=== PATIENT | female | born 1940 | race Caucasian/White ===

== ENCOUNTER 2022-05-14 00:31 | Outpatient (CLI) | payer MEDICARE, BC, SELFPAY | END 2022-05-14 00:32 | disposition home or self-care (01) | LOC: AMB 05-16 18:31 | PROVIDERS: PCP Family Medicine; Visit Provider Family Medicine | DX: F41.9 Anxiety disorder, unspecified (principal) ==

== ENCOUNTER 2022-10-06 12:40 | Outpatient (CLI) | payer MEDICARE, BC, SELFPAY ==
--- NOTE | 2022-10-06 13:00 | CRLHL7_ITS ---
For Patients: As a result of the Century Cures Act, medical imaging exams and procedure reports are released immediately into your electronic medical record. You may view this report before your referring provider. If you have questions, please contact your health care provider. Indication: Lumbar stenosis. Technique: T2, T1, and STIR sagittal as well as T1 and T2 axial sequences were obtained. No IV contrast. Comparison: X-rays from 10/28/2020. Findings: Trace degenerative anterolisthesis at L3-4. Alignment is unchanged from 10/28/2020. No evidence for recent fracture, worrisome bone lesion or pars defect. Benign hemangioma in the posterior aspect of the L4 vertebral body. Degenerative fusion across the L4-5 disc space. Minimal Modic type 1 and 2 marrow signal changes along the vertebral endplates. Moderately severe central canal stenosis is present at L3-4, associated with tortuosity of the cauda equina nerve roots. Mild thecal sac effacement at L2-3. The conus medullaris is unremarkable, with the tip of the cord at the L1 level. No paraspinal pathology is identified. T12-L1: Moderate disc and mild facet degenerative changes with low-grade foraminal narrowing. L1-2: Advanced disc and moderate facet degenerative changes with low-grade foraminal narrowing. L2-3: Advanced disc and moderate facet degenerative changes. Mild effacement of the thecal sac mild foraminal narrowing. L3-4: Severe facet osteoarthritis with trace degenerative anterolisthesis. Advanced disc degeneration. A small right extraforaminal disc herniation abuts the right L3 root as it exits the foramen. Moderately severe central canal stenosis. Mild left and moderate right foraminal narrowing. L4-5: Severe facet osteoarthritis. Degenerative fusion across the disc space. Low-grade foraminal narrowing. L5-S1: Severe bilateral facet osteoarthritis. Moderate disc degeneration. Moderate left foraminal narrowing. Impression: 1. Severe facet hypertrophy, slight degenerative anterolisthesis and posterior disc prominence combined to cause high-grade central canal stenosis at L3-4. Associated tortuosity of the cauda equina nerve roots. 2. Also at L3-4 there is a small extraforaminal disc herniation on the right, with potential impingement on the right L3 root as it exits the foramen. 3. At L4-5 there is severe facet osteoarthritis and degenerative fusion across the disc space. 4. At L5-S1 there is severe facet osteoarthritis. 5. Scattered low-grade spondylosis elsewhere. Dictated by Chris Brito MD @ 10/08/2022 8:39:05 AM (Electronically Signed)
== END 2022-10-06 12:41 | disposition home or self-care (01) ==
PROVIDERS: PCP Family Medicine; Visit Provider Family Medicine
DX: M48.062 Spinal stenosis, lumbar region with neurogenic claudication (principal); M51.36 Other intervertebral disc degeneration, lumbar region; M51.35 Other intervertebral disc degeneration, thoracolumbar region; M47.896 Other spondylosis, lumbar region; M47.897 Other spondylosis, lumbosacral region
CPT/HCPCS: 72148

== ENCOUNTER 2023-07-07 11:30 | Outpatient (RCR) | payer MEDICARE, BC, SELFPAY | END 2023-09-05 13:20 | disposition home or self-care (01) | PROVIDERS: PCP Family Medicine; Visit Provider Family Medicine | DX: M48.00 Spinal stenosis, site unspecified (principal); G62.9 Polyneuropathy, unspecified; M62.81 Muscle weakness (generalized); M17.0 Bilateral primary osteoarthritis of knee; R26.89 Other abnormalities of gait and mobility; N81.10 Cystocele, unspecified; M54.50 Low back pain, unspecified; Z51.89 Encounter for other specified aftercare | CPT/HCPCS: 97112; 97163; 97530 ==

== ENCOUNTER 2024-08-16 00:20 | Outpatient (CLI) | payer MEDICARE, BC, SELFPAY | END 2024-08-16 00:21 | disposition home or self-care (01) | PROVIDERS: PCP Family Medicine; Visit Provider Family Medicine | DX: R10.9 Unspecified abdominal pain (principal) | CPT/HCPCS: A0425; A0427 ==

== ENCOUNTER 2024-08-16 01:01 | Emergency (ER) | payer MEDICARE, BC, SELFPAY ==
[2024-08-16] VITALS (8 sets, daily range): BP systolic 156–189; BP diastolic 78–124; PULSE 86–96; RESP 22; TEMP 36.2; O2SAT 99–100; BMI 44.8
--- OUTSIDE RECORDS SUMMARY | 2024-08-16 01:04 | XMS_ITS | Clinical Summary ---
Author Organization [facility] Address [address] [place] [id number] Care Team Providers Care Signal Fitter Name Role Phone Ruby Rivas Niki Unavailable [phone] Nathaly Reilly DO Primary Care Provider Allergies Active Allergy Reactions Criticality Noted Date Comments Amoxicillin GI Upset 11/01/2012 Hyoscyamine 05/13/2009 weakness Miconazole Rash 06/15/2006 Sertraline Diarrhea 02/12/2010 Medications Blood-Glucose Calibrat Control cmpkIndications :Controlled type 2 diabetes mellitus with diabetic polyneuropathy, with long-term current use of insulin (HC) Home test for Ultra one touch glucometer 1 Each 018 Active lancets (OneTouch Delica Plus Lancet) 33 gauge miscIndications :Controlled type 2 diabetes mellitus with diabetic polyneuropathy, with long-term current use of insulin (HC) Use to test 4-6 times per day 600 Each 3 022 Active insulin glargine, U-100, (Basaglar KwikPen U-100 Insulin) 100 unit/mL (3 mL) penIndications: Controlled type 2 diabetes mellitus with diabetic polyneuropathy, with long-term current use of insulin (HC) Product desired:BASAGLAR INJECT 48-50 UNITS SUBCUTANEOUSLY DAILY 60 mL 023 Active insulin lispro, U-100, (HUMALOG KWIKPEN; ADMELOG SOLOSTAR) 100 unit/mL inpn penIndications: Controlled type 2 diabetes mellitus with diabetic polyneuropathy, with long-term current use of insulin (HC) Inject 12-14 units subcutaneous three times daily before meals. Product desired: HUMALOG KWIKPEN 30 mL 3 023 Active medication order composerIndicat ions:Pedal edema Recliner chair . Raise legs above level of heart 3 times daily for 30 minutes. 1 Each 023 Active CPAPIndications :KAY (obstructive sleep apnea) CPAP machine for home use at pressure 5-15 cmw, nasal mask x1/3month with nasal pillows x 2/mo 1 Each 11 023 Active OneTouch Ultra Test stripIndication s:Controlled type 2 diabetes mellitus with diabetic polyneuropathy, with long-term current use of insulin (HC) TEST 4 TIMES DAILY is needed as she takes insulin 4 times daily. Is on sliding scale. 540 Each 3 024 Active WalkerIndicatio ns:DDD (degenerative disc disease), lumbar,Spinal stenosis of lumbar region without neurogenic claudication Walker with wheels,seat,hand brakes,and basket for home use. 1 Each 024 Active mometasone (ELOCON) 0.1 % creamIndication s:Chronic eczematous otitis externa of both ears Apply to ear's BID as needed. 15 g 2 024 Active loratadine (CLARITIN) 10 mg tabletIndicatio ns:Generalized pruritus Take 1 Tablet (10 mg) by mouth once daily. Alternates between loratidine and cetirizine depending on the day. Active ibuprofen (ADVIL; MOTRIN) 200 mg tabletIndicatio ns:Other chronic pain Reports using as needed for pain. 024 Active naltrexone LOW DOSE oral custom compoundIndicat ions:Other chronic pain Low-dose naltrexone 3 mg tablet: Take 0.5 tablet (1.5 mg) by mouth at bedtime and increase dose as instructed in your after visit summary. Dispense #90 tablets, 0 refills. 90 Each 024 Active pen needle (Shi Pen Needle) 32 gauge x 5/32 (disposable insulin pen needle)Indicati ons:Controlled type 2 diabetes mellitus with diabetic polyneuropathy, with long-term current use of insulin (HC) Remove the 2 covers on the pen needle before administering medication dose. 100 Each 11 024 Active medication order composerIndicat ions:Other chronic pain Nattokinase 2000FU: Daily Now B-100: Daily Ricky MORALES MCT Wellness (powder): Hasn't started PB8 probiotic 14 billion: holding Kelsey Cod Liver Oil 1000 Mg: Daily NOW magnesium citrate 260 mg: Daily HS (2 capsules) Now Vitamin D-3 2000 IU: 4000 IU daily Now C-500: Daily 2 capsule (1000 mg) NOW coq10 200 mg: daily NAC 500 mg twice a day Now Goldenseal root 500mg: PRN for cold Now Echinacea 400mg: PRN for cold 025 Active gabapentin 100 mg capsuleIndicati ons:Pruritus Take 1 capsule at bedtime for 2 weeks and if symptoms persist may increase by 1 capsule every 2 weeks up to 300mg (3 caps total). 90 Capsule 025 Active LORazepam 0.5 mg tabIndications: Anxiety TAKE 1/2 to 1 TABLET BY MOUTH ONCE DAILY NEEDED 20 Tablet 1 025 Active lisinopriL 2.5 mg tabletIndicatio ns:Essential hypertension Take 1 Tablet (2.5 mg) by mouth once daily. 90 Tablet 025 Active naltrexone LOW DOSE oral custom compoundIndicat ions:Other chronic pain Low Dose Naltrexone compounded to 4.5 mg tablets: Take 1 tablet by mouth daily at bedtime 90 Each 3 025 Active blood sugar diagnostic (Contour Next Test Strips) stripIndication s:Controlled type 2 diabetes mellitus with diabetic polyneuropathy, with long-term current use of insulin (HC) USE TO TEST THREE TIMES DAILY 300 Each 3 025 Active blood-glucose meterIndication s:Controlled type 2 diabetes mellitus with diabetic polyneuropathy, with long-term current use of insulin (HC) Dispense meter, test strips, lancets covered by pt ins. E11.9 IDDM type II - Test 4 times/day. Reason: Hypoglycemia 1 Each 025 Active blood sugar diagnostic (Blood Glucose Test) stripIndication s:Controlled type 2 diabetes mellitus with diabetic polyneuropathy, with long-term current use of insulin (HC) Test 3 times per day. 100 Each 12 024 2024 Discontinued Active Problems Problem Noted Date Diagnosed Date Depression, recurrent 09/21/2022 Assessment & Plan (08/09/2023 9:31 AM CDT): chart update only. Nathaly Reilly D.O. 08/09/2023 9:31 AM Assessment & Plan (09/21/2022 10:52 AM CDT): chart update only Nathaly Reilly D.O. 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 Essential hypertension 01/07/2016 Controlled type 2 diabetes m ilya with diabetic polyneuropathy, with long-term current use of insulin 11/07/2015 Aortic valve sclerosis 02/28/2015 Anxiety 02/13/2015 Small vessel disease, cerebrovascular 08/08/2013 Overview (08/08/2013): On MRI - 07/28/13 Alopecia 03/21/2013 Chronic idiopathic gout of multiple sites 2011 Unspecified venous (peripheral) insufficiency Insomnia, unspecified 12/20/2008 KAY PSG-1993, RDI-9 04/29/2008 Umbilical hernia without mention of obstruction or gangrene 06/30/2006 Overview (06/30/2006): two noted on CT Osteoarthrosis, unspecified whether generalized or localized, lower leg 06/30/2006 Unspecified hearing loss 06/30/2006 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 Diverticulosis of colon (without mention of hemo rrhage) 06/15/2006 Mixed hyperlipidemia 06/15/2006 Irritable bowel syndrome wit h both constipation and diarrhea Resolved Problems Problem Noted Date Diagnosed Date Resolved Date Claudication of both lower extremities 09/05/2018 09/05/2018 Insomnia, unspecified 01/07/20162016 Diabetes mellitus type 2, controlled 01/27/2015 01/07/2016 Cerebellar atrophy 08/08/2013 3 Overview (08/08/2013): On MRI - 07/28/13 Major depressive disorder, r ecurrent episode, unspecified 11/21/2009 10/08/2020 Obesity, unspecified 06/15/2006 017 Unspecified sleep apnea 06/15/200607/2021 Hypertension 06/15/2006 01/07/2016 Anxiety state, unspecified 06/15/2006 1 DIABETES MELLITUS TYPE II Overview (06/30/2006): dx'ed 1977 with foot neuropathy Encounters Date Type Department Care Team Description 08/13/2024 Telephone [facility] [address] [place] [address] Nathaly Reilly DO Questions (new meter to go with test strips) 08/07/2024 1:30 PM CDT Office Visit [facility] [address] [place] [address] Fili Benavides DPM Consult (Diabetic foot check) 08/07/2024 Travel 08/07/2024 Refill [facility] [address] [place] [address] Nathaly Reilly DO Refill Request (Contour Next Test Strips) 06/28/2024 11:00 AM CDT Office Visit [facility] [address] [place] [address] Jason Vazquez MD Follow Up (Unable to collect stool samples, bladder urgency issues, difficulty attending appointments (CT), diarrhea resolved-constipation now) 06/28/2024 Travel 06/21/2024 Orders Only [facility] Scanner 1 scan: (1-Ord) [facility], 06/21/2024 06/20/2024 Refill [facility] [address] [place] [address] Maryam Barber PA Refill Request (naltrexone LOW DOSE oral custom compound ) 05/23/2024 Refill [facility] [address] [place] [address] Nathaly Reilly DO Refill Request (Lisinopril) 05/21/2024 Telephone [facility] [address] [place] [address] Nathaly Reilly DO Form from Last 3 Months Immunizations Immunization Administration Dates Next Due Influenza Virus, Unspecified 01/01/2002 Influenza, IIV3 (Age 6-35 mos) 11/13/2010 Influenza, IIV3 (Age >=3 years) 11/11/19 13,12/20/2011,11/13/2010,2009,11/08/2008,12/14/2005,11/23/2004,1 ,12/13/2000,12/22/1998 Pneumococcal Poly,23-Valent (Pneumovax) 09/26/2008,05/23/2000 Pneumococcal conj 13-Valent (Prevnar 13) 05/22/2015 Td (Age >=7 Years) 12/14/2005 Tdap 05/22/2015 Family History Medical History Relation Name Comments Arthritis Brother Cancer Father d 42 yo unknown CA Arthritis Mother at 99 from old age Other Sister Down's Relation Name Status Comments Brother Father Mother Sister Social History Tobacco Use Types Packs/Day Years Used Date Smoking Tobacco: Never Smokeless Tobacco: Never Tobacco Cessation:Counseling Given: Yes Alcohol Use Standard Drinks/Week Comments No 0 (1 standard drink = 0.6 oz pur e alcohol) PHQ-2 Answer Date Recorded PHQ-2 TOTAL SCORE 1 10/28/2023 Social Connections Answer Date Recorded Do you often feel lonely or isolated from those around you? 0 06/10/2023 Financial Resource Strain Answer Date R ecorded Difficulty of Paying Living Expenses 3 06/10/2023 Difficulty of Paying Living Expenses Not on file 06/10/2023 Food Insecurity Answer Date Recorded Do you worry your food will run out before you are able to buy more? 1 06/10/2023 Transportation Needs Answer Date Record ed Does lack of transportation keep you from medica l appointments? 1 06/10/2023 Does lack of transportation keep you from work, meetings or getting things that you need? 1 06/10/2023 Housing Stability Answer Date Recorded What is your housing situation today? 1 06/10/2023 Utilities Answer Date Recorded Do you have trouble paying f or utilities (for example, heat, electricity, water, phone)? 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 Gender Identity Not on file Sexual Orientation Not on file Occupation Industry Job Start Date Job End Date retired Not on file Not on file Not on file Obstetrics History Para Term AB IAB SAB Ectopic Multiple Livin g Live Births 1 1 1 1 Date Outcome GA Total Labor Labor/2nd/3rd Weight Sex Type Anes PTL Jeanette A1 A5 Name Clin Term Last Filed Vital Signs Vital Sign Reading Time Taken Comments Blood Pressure 169/66 08/07/2024 2:04 PM CDT Pulse 78 08/07/2024 1:36 PM CDT Temperature 36.7 C (98.1 F) 07/24/2019 11:18 AM CDT Respiratory Rate 18 10/02/2013 1:05 PM CDT Oxygen Saturation 96% 06/28/2024 11:11 AM CDT Inhaled Oxygen Concentration - - Weight 110.2 kg (243 lb) 08/07/2024 1:36 PM CDT Height 157.5 cm (5' 2) 10/28/2023 10:02 AM CDT Body Mass Index 44.45 10/28/2023 10:02 AM CDT Plan of Treatment Upcoming Encounters Date Type Department Care Team (Late st Contact Info) Description 09/19/2024 10:30 AM CDT Office Visit [facility] [address] [place] [address] Maryam Barber PA [address] [place] [address] Health Maintenance Due Date Last Done Comments Zoster (shingles) series for age 50+ (1 of 2) 1988 RSV vaccine for adults or (1 - 1-dose 75+ series) 2013 Medicare Wellness for age 65+ 11/13/2022 11/12/2021, 10/08/2020, 09/05/2018 COVID-19 vaccine series ( season) 2023 Influenza Vaccine (#1) 2024 3, 12/20/2011, 11/13/2010, Additional history exists BMI (ht and wt on same day) for age 18+ 10/27/2024 10/28/2023, 12/13/2022, 10/08/2020, Additional history exists Depression screening for age 12+ 10/27/2024 10/28/2023, 11/12/2021, 11/12/2021, Additional history exists Tetanus booster 05/21/2025 05/22/2015, 12/14/2005 Pneumococcal series for age 50+ Completed 05/22/2015, 09/26/2008, 05/23/2000 DEXA/DXA scan for age 65+ Completed 04/27/2016 Hepatitis B series for 19+ Aged Out N o longer eligible based on patient's age to complete this topic Goals Goal Patient Goal Type Associated Problems Recent Progress Patient-Stated? Author BLOOD PRESSURE - MAINTAINS BP less than 140/90 Blood Pressure No Sam Rouse MD Procedures Procedure Name Priority Date/Time Associated Diagnosis Comments SCAN-EYE EXAM 06/21/2024 12:00 AM CDT XR DXA BONE DENSITY 2 SITES AXIAL Routine 04/27/2016 10:50 AM CDT Post-menopausal from Last 3 Months or Most Recently Relevant to Health Maintenance Results * SCAN-EYE EXAM (06/21/2024 12:00 AM CDT) us Scanner OTHER Final Result * (ABNORMAL) XR DXA BONE DENSITY 2 SITES AXIAL (04/27/2016 10:50 AM CDT) Anatomical Region Laterality Modality Spine, HIPS, HIPL, HIPR Other Narrative 05/04/2016 11:02 AM CDT Please see scanned document for results of this study. us Sam Rouse MD DEXA Final Re sult from Last 3 Months or Most Recently Relevant to Health Maintenance Insurance MEDICARE PART B HB ONLY [employer] [place] [employer] MR PB ONLY [employer] [place] [employer] HB ONLY Care Teams Signal Fitter Relationship Specialty Start Date End Date Nathaly Reilly DO [address] [place] [address] PCP - General Family Practice 01/12/22 Ruby Rivas AuD Audiology 08/06/11
--- OUTSIDE RECORDS SUMMARY | 2024-08-16 01:04 | XMS_ITS | Data Portability ---
Author Organization [place] - [facility], autoContract - [facility] Address [address] [place] [address] Assessment Encounter Date Assessment Date Assessment LastModified by Organization Details LastModified Time 04/13/2024 04/13/2024 ASSESSMENT: Patient is a good candidate for conservative care and the prognosis is for a favorable outcome that achieves the patients' goals. We discussed etiology, activity modifications, home care, and other treatment options. Initially, it is recommended that the patient receive in-office treatment 1 times per week for 8 weeks at which time a re-evaluation will be performed to determine an appropriate change in plan. Initially, treatment will focus on joint manipulation to restore range of motion and reduce pain. We will slowly progress to therapeutic exercises and activities to improve function, strength, and stability may also be used as warranted. If the patient is not responding as expected, more invasive procedures will be discussed along with a referral. All considerations above were discussed with the patient and questions answered to satisfaction. If the patient should have any additional questions, or should the condition evolve or worsen, the patient should not hesitate to contact our office. ASSESSMENT: Patient is a good candidate for conservative care and the prognosis is for a favorable outcome that achieves the patients' goals. We discussed etiology, activity modifications, home care, and other treatment options. Initially, it is recommended that the patient receive in-office treatment 1 times per week for 8 weeks at which time a re-evaluation will be performed to determine an appropriate change in plan. Initially, treatment will focus on joint manipulation to restore range of motion and reduce pain. We will slowly progress to therapeutic exercises and activities to improve function, strength, and stability may also be used as warranted. If the patient is not responding as expected, more invasive procedures will be discussed along with a referral. All considerations above were discussed with the patient and questions answered to satisfaction. If the patient should have any additional questions, or should the condition evolve or worsen, the patient should not hesitate to contact our office. ecram Not available 04/13/2024 14:04:45 04/30/2024 04/30/2024 ASSESSMENT: Patient is a good candidate for conservative care and the prognosis is for a favorable outcome that achieves the patients' goals. We discussed etiology, activity modifications, home care, and other treatment options. Initially, it is recommended that the patient receive in-office treatment 1 times per week for 8 weeks at which time a re-evaluation will be performed to determine an appropriate change in plan. Initially, treatment will focus on joint manipulation to restore range of motion and reduce pain. We will slowly progress to therapeutic exercises and activities to improve function, strength, and stability may also be used as warranted. If the patient is not responding as expected, more invasive procedures will be discussed along with a referral. All considerations above were discussed with the patient and questions answered to satisfaction. If the patient should have any additional questions, or should the condition evolve or worsen, the patient should not hesitate to contact our office. ASSESSMENT: Patient is a good candidate for conservative care and the prognosis is for a favorable outcome that achieves the patients' goals. We discussed etiology, activity modifications, home care, and other treatment options. Initially, it is recommended that the patient receive in-office treatment 1 times per week for 8 weeks at which time a re-evaluation will be performed to determine an appropriate change in plan. Initially, treatment will focus on joint manipulation to restore range of motion and reduce pain. We will slowly progress to therapeutic exercises and activities to improve function, strength, and stability may also be used as warranted. If the patient is not responding as expected, more invasive procedures will be discussed along with a referral. All considerations above were discussed with the patient and questions answered to satisfaction. If the patient should have any additional questions, or should the condition evolve or worsen, the patient should not hesitate to contact our office. ecram Not available 04/30/2024 12:22:28 Plan of Treatment Reminders Order Date Submit Date Provider Last Modified By Organization Details Last Modified Time Details Appointments None record ed. Lab None record ed. Referral None record ed. Procedures None record ed. Surgeries None record ed. Imaging None record ed. Medication Orders None record ed. Patient TargetsNo targets recorded. Patient InstructionsNo instructions recorded. Reason for Referral None Reported. 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, [address], [facility] 14:04:37 Somatic dysfunction of sacral spine 857459653 Active 2024 Daniel Dennis DC [address], [place], [address], [facility] 14:04:37 Low back pain 883864545 Active 2024 Daniel Dennis DC [address], [place], [address], [facility] 14:04:37 Neck pain 71912100 Active 2024 Daniel Dennis DC [address], [place], [address], [facility] 14:04:45 Cervical segmental dysfunction 902792294 Active 2024 Daniel Dennis DC [address], [place], [address], [facility] 14:04:45 Problem Notes None recorded. Procedures Surgical History Date Name Laterality Status Provider Name and Address Organization Details Recorded Time 5 58273: Spinal manipulation , 3 to 4 regions completed Daniel Dennis DC [address], [place], [address], [facility] 04/30/2024 12:22:28 [address]: Spinal manipulation , 3 to 4 regions completed Daniel Dennis DC [address], [place], [address], [facility] 04/13/2024 14:06:28 Imaging Results None recorded. Procedure Notes None recorded. Medical Equipment None Reported. Medications Name Sig Start Date Stop Date Status Note LastModified by Organization Details LastModified Time cetirizine 10 mg tablet TAKE 1 TABLET (10 MG) BY MOUTH ONCE DAILY. active Not Available Not Available No t Available nystatin 100,000 unit/gram topical ointment APPLY TOPICALLY TO AFFECTED AREA(S) TWO TIMES DAILY. active Not Available Not Available No t Available prednisolone acetate 1 % eye drops,suspen josr INSTILL 1 DROP IN BOTH EYES FOUR TIMES A DAY X 1 WEEK THEN DIRECTED active Not Available Not Available Not Available lorazepam 0.5 mg tablet TAKE 1/2 TO 1 TABLET BY MOUTH ONCE DAILY NEEDED active Not Available Not Available No t Available Lastline Ultra Test strips USE TO TEST THREE TIMES DAILY active Not Available Not Available No t Available erythromycin 5 mg/gram (0.5 %) eye ointment APPLY OINTMENT SPARINGLY TO LASH LINE AND INNER LIDS AT BEDTIME IN BOTH EYES X 1 WEEK active Not Available Not Available No t Available triamcinolon e acetonide 0.1 % topical ointment APPLY TOPICALLY TWICE A DAY. USE FOR UP TO 2 WEEKS. active Not Available Not Available No t Available nystatin 100,000 unit/gram topical cream APPLY TOPICALLY TO AFFECTED AREA THREE TIMES DAILY FOR 1-2 WEEKS AND CONTINUE FOR 2 DAYS AFTER RASH RESOLVES active Not Available Not Available No t Available polymyxin B sulfate 10,000 unit-trimeth oprim 1 mg/mL eye drops INSTILL 1 DROP IN BOTH EYES FOUR TIMES A DAY X 1 WEEK THEN D/C active Not Available Not Available No t Available omeprazole 20 mg capsule,radha yed release TAKE 1 CAPSULE (20 MG) BY MOUTH ONCE DAILY BEFORE A MEAL. active Not Available Not Available No t Available gabapentin 100 mg capsule TAKE 1 CAPSULE AT BEDTIME FOR 2 WEEKS AND IF SYMPTOMS PERSIST MAY INCREASE BY 1 CAPSULE EVERY 2 WEEKS UP TO 300MG (3 CAPS TOTAL). active Not Available Not Available No t Available clotrimazole 1 % topical cream APPLY TOPICALLY TO AFFECTED AREA(S) TWO TIMES DAILY. active Not Available Not Available No t Available lisinopril 2.5 mg tablet TAKE 1 TABLET (2.5 MG) BY MOUTH ONCE DAILY. active Not Available Not Available No t Available mometasone 0.1 % topical cream APPLY TO AFFECTED AREA OF EAR TOPICALLY TWICE A DAY NEEDED active Not Available Not Available No t Available Unilet GP Lancet USE DIRECTED active Not Available Not Available No t Available BD Ultra-Fine Shi Pen Needle 32 gauge x REMOVE THE 2 COVERS ON THE PEN NEEDLE BEFORE ADMINISTERI NG MEDICATION DOSE. active Not Available Not Available No t Available Vitals None Recorded Social History None recorded. Functional Status None recorded. Mental Status None recorded. Family History Nothing Reported. Medical History No medical history recorded. Gynecological HistoryNo gynecological history recorded. Obstetrics History GPAL:G 0 P 0 0 0 0 Past Encounters Encounter ID Performer Location Encounter Start Date Encounter Closed Date Diagnosis/Indication Diagnosis SNOMED-CT Code Diagnosis ICD10 Code Diagnosis Note [id number] Daniel Dennis DC [address] [place] [address] 04/13/2024 12:21:57 04/13/2024 15:10:54 Lumbar segmental dysfunction 493197991 M99.03 Low back pain 713998656 M54.50 Somatic dy sfunction of sacral spine 942450366 M99.04 Thoracic s egmental dysfunction 646855090 M99.02 Cervical s egmental dysfunction 569456313 M99.01 Neck pain 34118569 M54.2 [id number] Daniel Dennis DC [address] [place] [address] 04/30/2024 12:10:45 04/30/2024 12:50:46 Lumbar segmental dysfunction 260666084 M99.03 Low back pain 442222203 M54.50 Somatic dy sfunction of sacral spine 836371896 M99.04 Thoracic s egmental dysfunction 554112304 M99.02 Cervical s egmental dysfunction 035302184 M99.01 Neck pain 14478170 M54.2 Health Concerns Section Related Observation LastModified by Organization Detai ls LastModified Time None Recorded Concern Status LastModified by Organization Details LastModified Time None Recorded Advance Directives Directive None Recorded Payers Insurance Date Sequence Insurance Name Policy Number Policy Lomas Covered Member ID Lomas Member ID Guarantor Name 04/30/2024 1 *SELF PAY* Da va Meri 05/11/2024 1 [place]ICARE [place]: [employer] Zachery Jerez [id number] 1 Zachery Jerez 05/11/2024 2 [facility] [id number] Zachery Jerez [id number] Zachery Jerez Notes Date Note Type Note Provider Name and Address Organization Details Recorded Time 04/13/2024 text/html HPI - Cervical SpineReported bypatient.Location: left Quality:aching Severity:moderate Duration:2 weeks Timing:gradual Alleviating Factors:ice Aggravating Factors:sitting Associated Symptoms:no numbness/tinglingHP I - Lumbar SpineReported bypatient.Location: left; With radiation to knee Quality:aching Severity:moderate Timing:cannot identify Duration:chronic Context:cannot identify Aggravating Factors:lifting; twisting; bending/squatting Alleviating Factors:ice; rest Daniel Dennis DC [address], [place], [address], [facility] 04/13/2024 14:06:47 04/30/2024 text/html HPI - Cervical SpineReported bypatient.Location: left Quality:aching Severity:moderate Duration:2 weeks Timing:gradual Alleviating Factors:ice Aggravating Factors:sitting Associated Symptoms:no numbness/tinglingHP I - Lumbar SpineReported bypatient.Location: left; With radiation to knee Quality:aching Severity:moderate Timing:cannot identify Duration:chronic Context:cannot identify Aggravating Factors:lifting; twisting; bending/squatting Alleviating Factors:ice; rest Daniel Dennis DC [address], [place], [address], [facility] 04/30/2024 12:24:33 OBGyn Episode No OBEpisode recorded.
[2024-08-16] MEDS: ONDANSETRON 2 MG/ML inj 4 MG IVP (01:47)
--- NOTE | 2024-08-16 01:50 | CRLHL7_ITS ---
For Patients: As a result of the Century Cures Act, medical imaging exams and procedure reports are released immediately into your electronic medical record. You may view this report before your referring provider. If you have questions, please contact your health care provider. Indication: Abdominal pain Technique: CT through the abdomen and pelvis following 140 mL Isovue 370 IV contrast Comparison: CT abdomen pelvis performed 04/09/2009 Findings: Lower chest: No acute abnormality appreciated. Hepatobiliary: No significant parenchymal abnormality is appreciated. Cholelithiasis. Spleen: Unremarkable. Pancreas: No acute abnormality appreciated. Adrenal glands: No acute abnormality appreciated. Kidneys: No significant parenchymal abnormality appreciated. No visualized calculi. No hydronephrosis. Bowel: No obstruction. No focal perienteric or pericolonic stranding is appreciated. Diverticulosis. Vascular: Calcified and noncalcified atherosclerosis. Lymph nodes: No gross lymphadenopathy. Peritoneum: No free air. No free fluid. : No acute abnormality appreciated. Soft tissues: No acute abnormality appreciated. Bones: No acute fracture. No lytic or blastic lesion. Degenerative changes of the spine and pelvis. Impression: No acute abnormality appreciated. Please note that all CT scans at this facility use dose modulation, iterative reconstruction, and/or weight-based dosing when appropriate to reduce radiation dose to as low as reasonably achievable. Dictated by Edd Tobar MD @ 08/16/2024 3:25:40 AM (Electronically Signed)
--- NOTE | 2024-08-16 01:52 | ED.ABDPAIN ---
HPI - Abdominal Pain General Date Seen: 08/16/24 Chief Complaint: Abdominal Pain Stated Complaint: abdominal pain Time Seen by Provider: 08/16/24 01:08 Source: patient and family Mode of arrival: ambulatory Limitations: no limitations History of Present Illness HPI narrative: Patient is an 84-year-old female who has been eating a lot of different foods over the past week due to the holiday. She has eaten hot dogs and other greasy foods. Today she just a chicken salad and a cream soup and developed pain across her upper abdomen. Apparently she has had numerous episodes of this pain and last underwent a CT scan about six months ago. She is known to have gallstones but she has not seen a surgeon to discuss cholecystectomy. She denies acid reflux. Tonight the pain became more intense and was associated with some vomiting prompting them to come to the emergency department. She has had no fevers or chills. She did take MiraLax today and has had a large soft stool. She believes that she was constipated prior to that. No ill encounters. No lower abdominal pain. She does not drink alcohol. No hematemesis. Related Data Home Medications ?Medication ?Instructions ?Recorded ?Confirmed B complex 11-folic acid 1 mg-C 100 1 tab PO QDAY 08/24/21 07/22/23 mg-biotin 300 mcg-zinc 50 mg tablet ascorbic acid (vitamin C) 1,000 mg 1 g PO DAILY 08/24/21 07/22/23 tablet cholecalciferol (vitamin D3) 50 2,000 unit PO DAILY 08/24/21 07/22/23 mcg (2,000 unit) tablet cod liver oil 1 cap PO QDAY 08/24/21 07/22/23 lactobacillus combination no.4 3 3,000 mmu cells PO QDAY 08/24/21 07/22/23 billion cell capsule (Probiotic) lipase 9,000 unit-protease 112,500 1 cap PO 08/24/21 07/22/23 unit-amylase 112,500 unit capsule lisinopril 2.5 mg tablet 2.5 mg PO QDAY 08/24/21 07/22/23 lorazepam 0.5 mg tablet 0.5 mg PO QDAY PRN 08/24/21 07/22/23 magnesium citrate (Citrate of 30 ml PO ONCE 08/24/21 07/22/23 Magnesia oral) soybean, fermented 50 mg capsule 50 mg PO QDAY 08/24/21 07/22/23 (Nattokinase) ibuprofen 200 mg tablet 200 mg PO Q6H PRN 08/06/22 07/22/23 blood sugar diagnostic (OneTouch #10 ea 06/14/23 07/22/23 Ultra Test strips) cetirizine 10 mg tablet 10 mg PO DAILY 06/14/23 07/22/23 clotrimazole 1 % topical cream applic topical 06/14/23 07/22/23 insulin aspart U-100 100 unit/mL 14 unit subcut .before meals 06/14/23 07/22/23 (3 mL) subcutaneous pen insulin glargine 100 unit/mL (3 50 unit subcut QPM 06/14/23 07/22/23 mL) subcutaneous pen (Basaglar KwikPen U-100 Insulin) Previous Rx's ?Medication ?Instructions ?Recorded nystatin 100,000 unit/gram topical 1 applic topical TID #30 grams 07/22/23 cream triamcinolone acetonide 0.1 % 1 applic topical BID #30 grams 07/22/23 topical ointment ondansetron 8 mg disintegrating 8 mg PO Q8H PRN nausea and 08/16/24 tablet vomiting #20 tabs Allergies Allergy/AdvReac Type Severity Reaction Status Date / Time amoxicillin Allergy Unknown Vomiting Verified 07/22/23 11:06 miconazole Allergy Unknown Verified 07/22/23 11:06 sertraline Allergy Unknown Verified 07/22/23 11:06 Review of Systems Narrative Review of systems is outlined above otherwise noted to be negative. [facility] Medical History (Updated 08/16/24 @ 04:10 by Gustavo Cadet MD) Spinal stenosis of lumbar region ?M48.061 - Spinal stenosis, lumbar region without neurogenic claudication (ICD-10) Lumbar spine scoliosis ?M41.9 - Scoliosis, unspecified (ICD-10) Lumbar degenerative disc disease ?M51.36 - Other intervertebral disc degeneration, lumbar region (ICD-10) Osteoarthritis of knees, bilateral ?M17.0 - Bilateral primary osteoarthritis of knee (ICD-10) Type 2 diabetes mellitus (10/08/11) ?E11.9 - Type 2 diabetes mellitus without complications (ICD-10) Stroke (10/08/11) ?I63.9 - Cerebral infarction, unspecified (ICD-10) Surgical History (Reviewed 06/14/23 @ 10:35 by Do Carpenter ~ [facility], [facility]) History of tonsillectomy ?Z90.89 - Acquired absence of other organs (ICD-10) H/O: hysterectomy (1981) ?Z90.710 - Acquired absence of both cervix and uterus (ICD-10) History of appendectomy ?Z90.49 - Acquired absence of other specified parts of digestive tract (ICD-10) H/O cataract extraction ?Z98.49 - Cataract extraction status, unspecified eye (ICD-10) Social History (Updated 06/14/23 @ 10:35 by Do Carpenter ~ [facility], [facility]) Narrative: Smoking Status: Never smoker Do you use any of these nicotine containing products: None Second hand tobacco smoke exposure: No How often do you have a drink containing alcohol: never AUDIT-C Alcohol total score: 0 Non-prescribed substance use: denies use service: No Exam Narrative: Exam Narrative: Vitals noted. HEENT: Conjunctiva clear. Neck is supple without adenopathy, thyromegaly, carotid bruit. Lungs: Clear to auscultation in all chandler. No wheezes, rales, rhonchi. Heart: Regular rate and rhythm with a soft systolic murmur. Abdomen: Morbidly obese. There is mild diffuse tenderness across the upper abdomen. No guarding, rigidity, rebound. Bowel sounds are normal. No palpable masses. Extremities: No cyanosis or edema. Good distal pulses. Skin: No abnormalities noted of the exposed skin. Neurologic: Awake, alert, fully oriented. Neurologic exam is nonfocal. Const: Vital Signs, click to edit/add: Vital Signs - 24 hr 08/16/24 01:07 08/16/24 03:00 08/16/24 03:02 Temperature 97.2 F L Pulse Rate 90 89 Pulse Rate [Left P ulse Oximeter] 86 Respiratory Rate 22 Blood Pressure 172/78 H Blood Pressure [Ri ght Upper Arm] 189/86 H Pulse Oximetry 99 99 99 Oxygen Delivery Me thod Room Air 08/16/24 03:03 08/16/24 03:15 08/16/24 03:30 Temperature Pulse Rate 90 90 87 Pulse Rate [Left P ulse Oximeter] Respiratory Rate Blood Pressure Blood Pressure [Ri ght Upper Arm] Pulse Oximetry 99 100 99 Oxygen Delivery Me thod 08/16/24 03:31 08/16/24 03:45 Temperature Pulse Rate 88 96 Pulse Rate [Left P ulse Oximeter] Respiratory Rate Blood Pressure 156/124 H Blood Pressure [Ri ght Upper Arm] Pulse Oximetry 99 99 Oxygen Delivery Me thod Course Course ED Course: Patient seen and examined. Labs and CT of her abdomen and pelvis are ordered. She is given Zofran 4 mg IV. Her abdominal pain resolved before we were able to give her any pain medication. Reevaluation(s) Reevaluation #1: Her CBC shows a hemoglobin [place] 14.4 [place] [address]. Basic metabolic panel is normal other than a glucose of 254. LFTs are completely normal. Lipase is normal. CT scan of her abdomen and pelvis does show gallstones but no wall thickening or inflammation. No other abnormalities. Vital Signs Vital signs: Initial Vital Signs Temperature 97.2 F L 08/16/24 01:07 Temperature Source Temporal Artery Scan 08/16/24 01:07 Pulse Rate 86 08/16/24 01:07 Pulse Rhythm Regular 08/16/24 01:07 Respiratory Rate 22 08/16/24 01:07 Blood Pressure 189/86 H 08/16/24 01:07 Blood Pressure Mean 120 H 08/16/24 01:07 Blood Pressure Position Semi-Fowlers 08/16/24 01:07 Pulse Oximetry 99 08/16/24 01:07 Oxygen Delivery Method Room Air 08/16/24 01:07 Vital Signs Temperature 97.2 F L 08/16/24 01:07 Pulse Rate 86 08/16/24 01:07 Respiratory Rate 22 08/16/24 01:07 Blood Pressure 189/86 H 08/16/24 01:07 Pulse Oximetry 99 08/16/24 01:07 Oxygen Delivery Method Room Air 08/16/24 01:07 Temperature 97.2 F L 08/16/24 01:07 Pulse Rate 96 08/16/24 03:45 Respiratory Rate 22 08/16/24 01:07 Blood Pressure 156/124 H 08/16/24 03:31 Pulse Oximetry 99 08/16/24 03:45 Oxygen Delivery Method Room Air 08/16/24 01:07 Medications Administered Medications: Generic Name Dose Route Start Last Admin Trade Name Freq PRN Reason Stop Dose Admin Ondansetron HCl 4 mg 07/10/25 01:28 08/16/24 01:47 Ondansetron 2 Mg/Ml Inj IVP 4 mg ONCE PRN Administration MDM - Abdominal Pain Lab Data Labs: Lab Results 08/16/24 Range/Units 01:20 WBC 11.66 H (4.50-11.00) K/uL RBC 5.45 H (4.00-5.20) m/uL Hgb 14.4 (12.0-16.0) gm/dL Hct 44.9 (33.0-51.0) % MCV 82 (80-100) fL MCH 26 (26-34) pg MCHC 32 (32-36) gm/dL RDW Coeff of Bruce 14.7 (11.5-15.5) % Plt Count 180 (140-440) K/uL Neut % (Auto) 82.5 H (42.0-72.0) % Lymph % (Auto) 13.1 L (20-44) % [place] % (Auto) 3.7 (0.0-11.0) % Eos % (Auto) 0.1 (0.0-7.0) % Baso % (Auto) 0.3 (0.0-3.0) % Neut # (Auto) 9.60 H (1.7-7.0) K/uL Lymph # (Auto) 1.50 (0.90-2.90) K/uL [place] # (Auto) 0.40 (0.00-0.90) K/UL Eos # (Auto) 0.00 (0.00-0.50) K/uL Baso # (Auto) 0.00 (0.00-0.30) K/uL Abs Immat Gran (auto) 0.00 (0.00-0.30) K/uL Imm/Tot Granulo (auto) 0.3 % Sodium 136 (135-149) mmol/L Potassium 5.2 H (3.6-5.1) mmol/L Chloride 105 (96-114) mmol/L Carbon Dioxide 24 (20-32) mmol/L Anion Gap 7 (7-15) mEq/L BUN 25 (7-30) mg/dL Creatinine 0.9 (0.5-1.5) mg/dL Estimated Creat Clear 31.94 Estimated GFR 62 ml/min Glucose 254 H (60-115) mg/dL Calcium 9.7 (8.4-10.6) mg/dL Total Bilirubin 0.6 (0.1-1.5) mg/dL AST 33 (12-35) U/L ALT 31 (4-35) U/L Alkaline Phosphatase 113 (40-150) U/L Total Protein 6.5 (6.0-8.3) g/dL Albumin 4.2 (3.3-5.0) g/dL Lipase 98 (23-300) U/L Discharge Plan Discharge Clinical Impression: Cholelithiasis, Abdominal pain Patient Disposition: Home, Self-Care Condition: Improved Additional Instructions: [place] diet. Continue current medications. Discussed with Dr. Reilly a bowel routine involving a daily stool softener and a daily dose of MiraLax. Your CT scan does show gallstones but no sign of gallbladder infection or obstruction. Discussed with Dr. Reilly whether consult with a general surgeon about removing her gallbladder is needed. Your more likely to have another gallbladder attack if you eat foods that are fatty or greasy. You can use Zofran for nausea. Prescriptions: New ondansetron 8 mg tablet,disintegrating 8 mg PO Q8H PRN (Reason: nausea and vomiting) Qty: 20 0RF No Action cholecalciferol (vitamin D3) 50 mcg (2,000 unit) tablet 2,000 unit PO DAILY ascorbic acid (vitamin C) 1,000 mg tablet 1 g PO DAILY Probiotic 3 billion cell capsule 3,000 mmu cells PO QDAY Rx Instructions: administer with a meal Nattokinase 50 mg capsule 50 mg PO QDAY magnesium citrate [Citrate of Magnesia] Solution 30 ml PO ONCE Rx Instructions: 2 tablets daily lorazepam 0.5 mg tablet 0.5 mg PO QDAY PRN lisinopril 2.5 mg tablet 2.5 mg PO QDAY cod liver oil Capsule 1 cap PO QDAY B complex 33-tluxo-F-biot-zinc [id number] pg-im-fcd-mg tablet 1 tab PO QDAY Rx Instructions: administer with a meal ajldyl-axlevvat-cvvjpmt 9,000-112,500- 112,500 unit capsule 1 cap PO nystatin 100,000 unit/gram cream 1 applic topical TID Qty: 30 1RF Rx Instructions: apply to affected area x 1-2 weeks and continue for 2 days after rash resolves triamcinolone acetonide 0.1 % ointment 1 applic topical BID Qty: 30 0RF Rx Instructions: Use for up to 2 weeks. ibuprofen 200 mg tablet 200 mg PO Q6H PRN insulin aspart U-100 100 unit/mL (3 mL) insulin pen 14 unit subcut .before meals insulin glargine [Basaglar KwikPen U-100 Insulin] 100 unit/mL (3 mL) insulin pen 50 unit subcut QPM (DME) OneTouch Ultra Test Strip See Rx Instructions .ROUTE .MEDSUPPLY Qty: 10 Patient Comments: TEST 6 TIMES DAILY IS NEEDED SHE TAKES INSULIN 4 TIMES DAILY Rx Instructions: As directed cetirizine 10 mg tablet 10 mg PO DAILY clotrimazole 1 % cream topical Follow Up/Referrals: Nathaly Reilly DO [Primary Care Provider, Family Practice] Stand Alone Forms: MyHealth Info Instructions
[2024-08-16 01:57] LABS: Hematocrit 44.9 % (33.0-51.0); Hemoglobin* 14.4 gm/dL (12.0-16.0); Immature Granulocytes Pct Auto 0.3 %; Mean Corpuscular HGB Conc 32 gm/dL (32-36); Mean Corpuscular Hemoglobin 26 pg (26-34); Mean Corpuscular Volume 82 fL (80-100); RDW Coefficient of Variation % 14.7 % (11.5-15.5); Red Blood Count 5.45 m/uL (4.00-5.20); White Blood Count* 11.66 K/uL (4.50-11.00)
[2024-08-16 01:59] LABS: Immature Granulocytes Abs Auto 0.00 K/uL (0.00-0.30); Lymphocytes Absolute Auto 1.50 K/uL (0.90-2.90); Slide Review Reflex No
[2024-08-16 02:00] LABS: Albumin* 4.2 g/dL (3.3-5.0)
[2024-08-16 02:01] LABS: Chloride* 105 mmol/L (96-114); Potassium* 5.2 mmol/L (3.6-5.1); Sodium* 136 mmol/L (135-149)
[2024-08-16 02:03] LABS: Alanine Aminotransferase* 31 U/L (4-35); Aspartate Amino Transferase* 33 U/L (12-35); Blood Urea Nitrogen* 25 mg/dL (7-30); Creatinine* 0.9 mg/dL (0.5-1.5); Est. Creatinine Clearance* 31.94; Estimated Glomerular Filt Rate 62 ml/min
[2024-08-16 02:04] LABS: Alkaline Phosphatase* 113 U/L (40-150); Anion Gap 7 mEq/L (7-15); Bilirubin Total* 0.6 mg/dL (0.1-1.5); Calcium* 9.7 mg/dL (8.4-10.6); Carbon Dioxide* 24 mmol/L (20-32); Glucose* 254 mg/dL (60-115); Total Protein* 6.5 g/dL (6.0-8.3)
== END 2024-08-16 05:59 | disposition home or self-care (01) ==
PROVIDERS: Emergency Provider Family Medicine; PCP Family Medicine
DX: K80.20 Calculus of gallbladder without cholecystitis without obstruction (principal); R10.9 Unspecified abdominal pain; R11.10 Vomiting, unspecified
CPT/HCPCS: 36415; 74177; 80053; 83690; 85025; 96374; 96375; 99283; 99284; 99285; J2405; Q9967